=== PATIENT | male | born 1985 | race Caucasian/White ===

== ENCOUNTER 2023-08-06 22:12 | Emergency (ER) | payer BC ==
[~2023-08-06] VITALS: Ht 182.9 cm; Wt 100.0 kg
[2023-08-06 23:00] VITALS: BP 127/92; PULSE 82; RESP 16; TEMP 97.8; O2SAT 98
[2023-08-07] MEDS: CYCLOBENZAPRINE 10MG TABLET PO ONE (00:56)
== END 2023-08-07 02:16 | disposition home or self-care (01) ==
LOC: ER 22:12
DX: M79.671 Pain in right foot (principal)
CPT/HCPCS: 93971; 99284